=== PATIENT | female | born 1995 | race Caucasian/White ===

== ENCOUNTER → 2019-05-20 20:00 | Observation (INO) ==
[2019-05-20 17:27] LABS: Amphetamine Screen,Urine Negative ng/mL (Cutoff=1000); Barbiturate Screen,Urine Negative ng/mL (Cutoff=200); Benzodiazepines Screen,Urine Negative ng/mL (Cutoff=200); Cannabinoid Screen,Urine Negative ng/mL (Cutoff = 50); Cocaine Screen,Urine Negative ng/mL (Cutoff= 300); Opiate Screen,Urine Negative ng/mL (Cutoff=300); Phencyclidine Screen,Urine Negative ng/mL (Cutoff=25)
[~2019-05-20 20:00] MED LIST: Ringers Solution, Lactated 500 ML IVC ONE
== END | disposition home or self-care (01) ==
LOC: 1NENULAB
PROVIDERS: ADMIT Advanced Practice Midwife; ATTEND Advanced Practice Midwife

== ENCOUNTER 2019-05-22 07:38 | Inpatient (IN) ==
[2019-05-22] MEDS ORDERED: Famotidine 20 MG/2 ML VIAL IVP ONE (08:31)
[2019-05-22] MEDS ORDERED: Oxytocin 20 units/ LR 1000 mL 20 UNIT/1,000 ML BAG IVC ONE (08:31)
[2019-05-22] MEDS ORDERED: CeFAZolin Premix DUPLEX 2,000 MG/50 ML BAG IVPB ONE (08:31)
[2019-05-22] MEDS ORDERED: Metoclopramide 10 MG/2 ML VIAL IVP ONE (08:31)
[2019-05-22 08:56] LABS: Basophils % 0.2 %; Eosinophils # 0.1 K/mcL (0.0-0.6); Eosinophils % 1.1 %; Hematocrit 34.9 % (35.3-44.9); Hemoglobin 12.1 g/dL (11.5-15.4); Immature Granulocytes % 0.7 % (0-4); Lymphocytes % 21.6 %; Mean Corpuscular HGB Conc 34.7 g/dL (31.6-35.5); Mean Corpuscular Volume 92.3 fL (83.0-100.0); Mean Platelet Volume 10.2 fL (9.4-12.4); Monocytes # 0.6 K/mcL (0.0-1.3); Monocytes % 6.8 %; Neutrophils # 6.4 K/mcL (1.6-8.9); Platelet Count 187 K/mcL (140-400); Red Blood Count 3.78 M/mcL (3.82-4.97); Red Cell Distribution Width 13.1 % (11.5-14.5); Segmented Neutrophils % 69.6 %; White Blood Count 9.2 K/mcL (4.3-11.1)
[2019-05-22] MEDS ORDERED: *HR* Morphine Sulfate/PF 10 MG/10 ML AMPUL ONE (09:12)
[2019-05-22] MEDS ORDERED: EPHEDrine 50 MG/ML VIAL ONE (09:12)
[2019-05-22] MEDS ORDERED: *HR* Oxytocin 10 UNIT/ML VIAL IM ONE (09:12)
[2019-05-22] MEDS ORDERED: *HR* FentaNYL (PF) 100 MCG/2 ML VIAL ONE (09:12)
[2019-05-22] MEDS ORDERED: Ondansetron 4 MG/2 ML VIAL ONE (09:13)
[2019-05-22] MEDS: Ringers Solution, Lactated 1,000 ML IVC SCH ×2 (09:20→10:06)
[2019-05-22 09:24] LABS: Amphetamine Screen,Urine Negative ng/mL (Cutoff=1000); Barbiturate Screen,Urine Negative ng/mL (Cutoff=200); Benzodiazepines Screen,Urine Negative ng/mL (Cutoff=200); Cannabinoid Screen,Urine Negative ng/mL (Cutoff = 50); Cocaine Screen,Urine Negative ng/mL (Cutoff= 300); Opiate Screen,Urine Negative ng/mL (Cutoff=300); Phencyclidine Screen,Urine Negative ng/mL (Cutoff=25)
[2019-05-22] MEDS ORDERED: Albuterol 2.5 MG/3 ML NEBULIZER IH ONE (09:47)
[2019-05-22] MEDS ORDERED: Ondansetron 4 MG/2 ML VIAL IVP ONE (09:47)
[2019-05-22] MEDS ORDERED: *HR* OxyCODONE Immed Rel 5 MG TABLET PO PRN (09:47)
[2019-05-22] MEDS ORDERED: *HR* Meperidine 25 MG/ML SYRINGE IVP PRN (09:47)
[2019-05-22] MEDS ORDERED: *HR* HYDROmorphone (PF) 1 MG/ML SYRINGE IVP PRN (09:47)
[2019-05-22] MEDS ORDERED: Ketorolac 30 MG/ML VIAL IVP ONE (09:47)
[2019-05-22] MEDS ORDERED: *HR* Promethazine 25 MG/ML VIAL IVP PRN (09:47)
[2019-05-22] MEDS ORDERED: Acetaminophen IV 1,000 MG/100 ML INFUS..BTL IVPB ONE (09:47)
[2019-05-22] MEDS ORDERED: Ringers Solution, Lactated 1,000 ML ONE ×2 (11:14→11:32)
[2019-05-22] MEDS ORDERED: Lidocaine/EPI 1:200k 2% PF 20 ML VIAL ONE (11:31)
[2019-05-22] MEDS ORDERED: *HR* HYDROMORPHONE 2 MG/ML VIAL ONE (12:15)
[2019-05-22] MEDS ORDERED: *HR* Nalbuphine 10 MG/ML AMPUL IV STA (13:28)
[2019-05-22] MEDS ORDERED: Rho Immune Globulin 1,500 UNIT SYRINGE IM ONE (14:24)
[2019-05-22] MEDS ORDERED: Ondansetron 4 MG/2 ML VIAL IVP PRN (14:24)
[2019-05-22] MEDS ORDERED: Sennosides 8.6 MG TABLET PO PRN (14:24)
[2019-05-22] MEDS ORDERED: Metoclopramide 10 MG/2 ML VIAL IVP PRN (14:24)
[2019-05-22] MEDS ORDERED: Oxytocin 20 units/ LR 1000 mL 20 UNIT/1,000 ML BAG IVC SCH (14:24)
[2019-05-22] MEDS ORDERED: Simethicone 80 MG TAB.CHEW PO PRN (14:24)
[2019-05-22] MEDS: Ibuprofen 600 MG TABLET PO PRN (20:43)
[2019-05-23] MEDS: Ibuprofen 600 MG TABLET PO PRN ×3 (04:19→20:34)
[2019-05-23 06:43] LABS: Basophils % 0.2 %; Eosinophils # 0.1 K/mcL (0.0-0.6); Eosinophils % 0.6 %; Hematocrit 28.7 % (35.3-44.9); Hemoglobin 9.9 g/dL (11.5-15.4); Immature Granulocytes % 0.4 % (0-4); Lymphocytes # 1.5 K/mcL (0.6-4.6); Lymphocytes % 12.2 %; Mean Corpuscular HGB Conc 34.5 g/dL (31.6-35.5); Mean Corpuscular Volume 92.9 fL (83.0-100.0); Mean Platelet Volume 9.6 fL (9.4-12.4); Monocytes # 0.7 K/mcL (0.0-1.3); Monocytes % 5.4 %; Neutrophils # 10.2 K/mcL (1.6-8.9); Platelet Count 146 K/mcL (140-400); Red Blood Count 3.09 M/mcL (3.82-4.97); Red Cell Distribution Width 13.3 % (11.5-14.5); Segmented Neutrophils % 81.2 %; White Blood Count 12.6 K/mcL (4.3-11.1)
[2019-05-23] MEDS: Prenatal Vit/FA 1 EACH TABLET PO SCH (09:51)
[2019-05-23] MEDS: Loratadine 10 MG TABLET PO SCH (09:52)
[2019-05-23] MEDS: *HR* OxyCODONE/APAP 5/325 TABLET PO PRN ×2 (09:52→21:00)
[2019-05-24] MEDS: Ibuprofen 600 MG TABLET PO PRN (05:26)
[2019-05-24 08:09] VITALS: BP 112/67
[2019-05-24] MEDS: Prenatal Vit/FA 1 EACH TABLET PO SCH (10:36)
[2019-05-24] MEDS: Loratadine 10 MG TABLET PO SCH (10:36)
[2019-05-24] MEDS: *HR* OxyCODONE/APAP 5/325 TABLET PO PRN (10:41)
== END 2019-05-24 13:41 | disposition home or self-care (01) | DRG 787 ==
LOC: 1NENULAB → OBSVTOIN 07:38 → 1NENUOBS 14:24
PROVIDERS: ADMIT Obstetrics & Gynecology; ATTEND Obstetrics & Gynecology

== ENCOUNTER → 2020-09-16 09:36 | Observation (INO) ==
[2020-09-16 09:24] LABS: Bilirubin,Urine Negative (Negative); Blood,Urine Negative (Negative); Clarity,Urine Clear (Clear); Color,Urine Light-Yellow (Yellow); Glucose,Urine (UA) Normal (Normal); Ketones,Urine Negative (Negative); Leukocyte Esterase,Urine Small (Negative); Mucus,Urine Few per lpf (None-Few); Nitrite,Urine Negative (Negative); Protein,Urine Negative (Neg-Trace); RBC,Urine 0-3 per hpf (0-3); Specific Gravity,Urine 1.012 (1.010-1.025); Squamous Epithelial Cell,Urine Few per hpf (None-Few); Urobilinogen,Urine Normal (Normal); WBC,Urine 0-3 per hpf (0-3)
== END | disposition home or self-care (01) ==
LOC: 1NENULAB
PROVIDERS: ADMIT Obstetrics & Gynecology; ATTEND Obstetrics & Gynecology

== ENCOUNTER → 2021-01-02 07:35 | Observation (INO) | END | disposition home or self-care (01) | LOC: 1NENULAB | PROVIDERS: ADMIT Advanced Practice Midwife; ATTEND Advanced Practice Midwife ==